=== PATIENT | female | born 1970 | race Caucasian/White ===

== ENCOUNTER 2017-09-18 23:06 | Emergency (ER) | payer BC ==
[2017-09-18] MEDS ORDERED: Aspirin 81 MG Tab.Chew PO ONE (23:11)
--- NOTE | 2017-09-18 23:13 | EDM.PDOC ---
ED HPI GENERAL MEDICAL PROBLEM - General Stated Complaint: CHEST PAIN RADIATING TO LEFT ARM/SHOULDER Time Seen by Provider: 09/18/17 23:13 Source of Information: Reports: Patient History Limitations: Reports: No Limitations - History of Present Illness INITIAL COMMENTS - FREE TEXT/NARRATIVE: ED ambulatory with family with report of chest pain radiating to left shoulder for past hour. Pain constant but lessens at times. Hx HTN. Describes as burning sensation. Pain worse when lying down. No difficulty breathing, No nausea, Onset: Today Chest Pain Score (Numeric/FACES): 5 - Related Data Allergies Allergy/AdvReac Type Severity Reaction Status Date / Time No Known Allergies Allergy Verified 09/18/17 23:16 Home Meds: Home Meds Levothyroxine 1 tab PO DAILY 08/02/15 [History] Propranolol HCl [Propranolol] 09/18/17 [History] Social & Family History - Tobacco Use Smoking Status *Q: Never Smoker Second Hand Smoke Exposure: No - Recreational Drug Use Recreational Drug Use: No ED ROS GENERAL - Review of Systems Review Of Systems: See Below Constitutional: Reports: No Symptoms HEENT: Reports: No Symptoms Respiratory: Denies: Shortness of Breath Cardiovascular: Reports: Chest Pain. Denies: Dyspnea on Exertion, Edema, Orthopnea GI/Abdominal: Denies: Abdominal Pain : Reports: No Symptoms Musculoskeletal: Reports: No Symptoms Neurological: Reports: No Symptoms Psychiatric: Reports: No Symptoms ED EXAM, GENERAL - Physical Exam Exam: See Below Exam Limited By: No Limitations General Appearance: Alert, No Apparent Distress Eye Exam: Bilateral Eye: EOMI, PERRL Ears: Normal External Exam, Normal TMs Nose: Normal Inspection Throat/Mouth: Normal Inspection Head: Atraumatic, Normocephalic Neck: Normal Inspection, Full Range of Motion Respiratory/Chest: No Respiratory Distress, Lungs Clear, Normal Breath Sounds, Other (left upper chest wall tenderness with moderate pressure. ) Cardiovascular: Normal Peripheral Pulses, Regular Rate, Rhythm, No Edema, No JVD , No Murmur GI/Abdominal: Normal Bowel Sounds Back Exam: Full Range of Motion Extremities: Normal Inspection, Normal Range of Motion Neurological: Alert, Oriented Psychiatric: Flat Affect Skin Exam: Warm, Dry, Intact, Normal Color EKG INTERPRETATION Rhythm: NSR Course - Vital Signs Last Recorded V/S: Last Vital Signs Temp 97.8 F 09/18/17 23:11 Pulse 107 H 09/18/17 23:11 Resp 18 09/18/17 23:11 BP 142/98 H 09/18/17 23:11 Pulse Ox 100 09/18/17 23:11 - Orders/Labs/Meds Orders: Active Orders 24 hr Category Date Time Status EKG 12 Lead [EKG Documentation Completion] [RC] URGENT Care 09/18/17 23:13 Active Labs: Laboratory Tests 09/18/17 09/18/17 09/18/17 Range/Units 23:15 23:15 23:15 WBC 8.7 (5.0-10.0) 10^3/uL RBC 5.06 (4.2-5.4) 10^6/uL Hgb 15.6 (12.0-16.0) g/dL Hct 44.2 (37.0-47.0) % MCV 87.4 D (80-100) fL MCH 30.8 (27.0-34.0) pg MCHC 35.3 H (33.0-35.0) g/dL Plt Count 200 (150-450) 10^3/uL Neut % (Auto) 56.2 (42.2-75.2) % Lymph % (Auto) 29.2 (20.5-50.1) % Rice % (Auto) 10.5 H (2-8) % Eos % (Auto) 3.9 H (1.0-3.0) % Baso % (Auto) 0.2 (0.0-1.0) % D-Dimer, Quantitative 169 (0-400) ng/mL Sodium 136 (135-145) mmol/L Potassium 3.5 L (3.6-5.0) mmol/L Chloride 105 (101-111) mmol/L Carbon Dioxide 24.0 (21.0-31.0) mmol/L Anion Gap 10.5 BUN 11 (7-18) mg/dL Creatinine 0.7 (0.6-1.3) mg/dL Est Cr Clr Drug Dosing 75.78 mL/min Estimated GFR (MDRD) > 60 BUN/Creatinine Ratio 15.71 Glucose 115 H (74-105) mg/dL Calcium 8.9 (8.4-10.2) mg/dl Total Bilirubin 0.5 (0.2-1.0) mg/dL AST 23 (10-42) IU/L ALT 26 (10-60) IU/L Alkaline Phosphatase 48 (42-121) IU/L CK-MB (CK-2) (0.4-4.7) ng/mL Troponin I < 0.02 (0.00-0.02) ng/ml Total Protein 7.1 (6.7-8.2) g/dl Albumin 3.7 (3.2-5.5) g/dl Globulin 3.4 Albumin/Globulin Ratio 1.09 Amylase 34 (28-100) U/L Lipase 23 (22-51) U/L 09/18/17 09/19/17 Range/Units 23:15 01:48 WBC (5.0-10.0) 10^3/uL RBC (4.2-5.4) 10^6/uL Hgb (12.0-16.0) g/dL Hct (37.0-47.0) % MCV (80-100) fL MCH (27.0-34.0) pg MCHC (33.0-35.0) g/dL Plt Count (150-450) 10^3/uL Neut % (Auto) (42.2-75.2) % Lymph % (Auto) (20.5-50.1) % Rice % (Auto) (2-8) % Eos % (Auto) (1.0-3.0) % Baso % (Auto) (0.0-1.0) % D-Dimer, Quantitative (0-400) ng/mL Sodium (135-145) mmol/L Potassium (3.6-5.0) mmol/L Chloride (101-111) mmol/L Carbon Dioxide (21.0-31.0) mmol/L Anion Gap BUN (7-18) mg/dL Creatinine (0.6-1.3) mg/dL Est Cr Clr Drug Dosing mL/min Estimated GFR (MDRD) BUN/Creatinine Ratio Glucose (74-105) mg/dL Calcium (8.4-10.2) mg/dl Total Bilirubin (0.2-1.0) mg/dL AST (10-42) IU/L ALT (10-60) IU/L Alkaline Phosphatase (42-121) IU/L CK-MB (CK-2) 1.00 (0.4-4.7) ng/mL Troponin I < 0.02 (0.00-0.02) ng/ml Total Protein (6.7-8.2) g/dl Albumin (3.2-5.5) g/dl Globulin Albumin/Globulin Ratio Amylase (28-100) U/L Lipase (22-51) U/L Meds: Medications Discontinued Medications Generic Name Dose Route Start Last Admin Trade Name Rubia PRN Reason Stop Dose Admin Al Hydroxide/Mg Hydroxide 30 ml 09/18/17 23:50 09/18/17 23:52 Gi Cocktail PO 09/18/17 23:51 30 ml ONETIME ONE Administration Aspirin 324 mg 09/18/17 23:11 09/18/17 23:22 Aspirin PO 09/18/17 23:12 324 mg ONETIME ONE Administration Famotidine 20 mg 09/19/17 00:56 09/19/17 00:59 Pepcid IVPUSH 09/19/17 00:57 20 mg ONETIME ONE Administration Morphine Sulfate 2 mg 09/19/17 01:21 09/19/17 01:28 Morphine IVPUSH 09/19/17 01:22 2 mg ONETIME ONE Administration Morphine Sulfate 2 mg 09/19/17 01:46 09/19/17 02:32 Morphine IVPUSH 09/19/17 01:47 2 mg ONETIME ONE Administration Ondansetron HCl 4 mg 09/19/17 01:21 09/19/17 01:27 Zofran IV 09/19/17 01:22 4 mg ONETIME ONE Administration - Radiology Interpretation Free Text/Narrative:: CXR normal Departure - Departure Time of Disposition: 02:35 Disposition: Home, Self-Care 01 Condition: Good Clinical Impression: Atypical chest pain Instructions: Nonspecific Chest Pain, [id number] Forms: ED Department Discharge Additional Instructions: follow up with [facility] provider this week bland diet, limit acids, caffeine, soda omeprazole 20mg one daily on empty stomach tylenol 650mg every 4 hours as needed for pain - My Orders Last 24 Hours: My Active Orders 09/18/17 23:13 EKG 12 Lead [EKG Documentation Completion] [RC] URGENT - Assessment/Plan Last 24 Hours: My Active Orders 09/18/17 23:13 EKG 12 Lead [EKG Documentation Completion] [RC] URGENT
[2017-09-18 23:16] VITALS: BP 142/98
[2017-09-18 23:46] LABS: ANION GAP 10.5; CHLORIDE,CL 105 mmol/L (101-111); SODIUM,NA 136 mmol/L (135-145)
[2017-09-18] MEDS ORDERED: GI Cocktail Oral Solution 30 ML PO ONE (23:50)
[2017-09-19] MEDS ORDERED: Famotidine 20 MG/2 ML SDV IVPUSH ONE (00:56)
[2017-09-19] MEDS ORDERED: Ondansetron 4 MG/2 ML SDV IV ONE (01:21)
[2017-09-19] MEDS ORDERED: Morphine 2 MG/ML Syringe IVPUSH ONE ×2 (01:21→01:46)
--- NOTE | 2017-09-19 13:05 | EKG ---
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 Borderline left axis deviation. Borderline R-wave progression to level of V5. No acute ST-segment or T-wave changes. [facility] /[id number]
== END 2017-09-19 02:45 | disposition home or self-care (01) ==
LOC: DL.ED 23:06
DX: R07.89 Other chest pain (principal); I10 Essential (primary) hypertension; Z79.899 Other long term (current) drug therapy
CPT/HCPCS: 36415; 71045; 80053; 82150; 82553; 83690; 84484; 85025; 85379; 93005; 96374; 96375; 96376; 99285; A9270; J2270; J2405; S0028

== ENCOUNTER 2020-03-14 17:53 | Emergency (ER) | payer BC ==
[2020-03-14] MEDS ORDERED: Famotidine 20 MG/2 ML SDV IVPUSH ONE (19:16)
[2020-03-14] MEDS ORDERED: GI Cocktail Oral Solution 30 ML PO ONE (19:20)
[2020-03-14 19:32] VITALS: BP 135/83; PULSE 93
--- NOTE | 2020-03-14 19:38 | CR ---
PROCEDURE INFORMATION: Exam: XR Chest, 1 View Exam date and time: 03/14/2020 7:29 PM Age: 49 years old Clinical indication: Other: Painj; Additional info: Chest burn TECHNIQUE: Imaging protocol: XR of the chest Views: 1 view. COMPARISON: CR Chest 1V Frontal 09/18/2017 11:45 PM FINDINGS: Lungs: Increased basilar lung density is felt to be related to body habitus and extrinsic soft tissue attenuation. This is similar to prior exam. Normal pulmonary expansion. Pulmonary vasculature grossly normal. No infiltrates. Pleural space: No pleural effusion. No pneumothorax. Heart/Mediastinum: Heart size normal. Bones/joints: No acute osseous abnormalities are identified. Other findings: No tracheal/mediastinal shift. IMPRESSION: No acute thoracic process.
[2020-03-14 19:57] LABS: ANION GAP 11.9 mEq/L (7-13); CHLORIDE,CL 104 mmol/L (98-107); SODIUM,NA 141 mmol/L (136-145)
[2020-03-14] MEDS ORDERED: Pantoprazole 40 MG Vial IVPUSH ONE (20:14)
--- NOTE | 2020-03-14 21:09 | EDM.PDOC ---
ED HPI GENERAL MEDICAL PROBLEM - General Chief Complaint: Chest Pain Stated Complaint: CHEST BURNING Time Seen by Provider: 03/14/20 19:05 Source of Information: Reports: Patient History Limitations: Reports: No Limitations - History of Present Illness INITIAL COMMENTS - FREE TEXT/NARRATIVE: ED with c/o burning in epigastric area, No SOB Pain sharp at times, Tried pepcid and helped some. then came back. Has had similar previously. Was on stomach medication for period then quit for past week. has not been taking. Pain radiates to right shoulder, No hx GB issues. No previous EGD, states told if one more episode then would schedule one chest Pain Score (Numeric/FACES): 4 - Related Data Allergies Allergy/AdvReac Type Severity Reaction Status Date / Time No Known Allergies Allergy Verified 03/14/20 18:08 Home Meds: Home Meds Levothyroxine 150 mcg PO DAILY 08/02/15 [History] Propranolol HCl [Propranolol] 60 mg PO BEDTIME 09/18/17 [History] Famotidine [Pepcid AC] 20 mg PO DAILY PRN 03/14/20 [History] Past Medical History HEENT History: Reports: Impaired Vision Cardiovascular History: Reports: Hypertension Respiratory History: Reports: None Gastrointestinal History: Reports: GERD Genitourinary History: Reports: None Musculoskeletal History: Reports: None Neurological History: Reports: None Psychiatric History: Reports: None Endocrine/Metabolic History: Reports: Hypothyroidism Hematologic History: Reports: None Immunologic History: Reports: None Oncologic (Cancer) History: Reports: None Dermatologic History: Reports: None - Infectious Disease History Infectious Disease History: Reports: None - Past Surgical History Female Surgical History: Reports: Section Social & Family History - Family History Family Medical History: Noncontributory - Tobacco Use Smoking Status *Q: Never Smoker Second Hand Smoke Exposure: No - Caffeine Use Caffeine Use: Reports: None - Recreational Drug Use Recreational Drug Use: No ED ROS GENERAL - Review of Systems Review Of Systems: Comprehensive ROS is negative, except as noted in HPI. ED EXAM, GENERAL - Physical Exam Exam: See Below Exam Limited By: No Limitations General Appearance: Alert, Mild Distress, Obese Eye Exam: Bilateral Eye: PERRL Ears: Normal External Exam, Normal TMs Nose: Normal Inspection Throat/Mouth: Normal Inspection Head: Atraumatic, Normocephalic Neck: Normal Inspection Respiratory/Chest: No Respiratory Distress, Lungs Clear, Normal Breath Sounds Cardiovascular: Normal Peripheral Pulses, Regular Rate, Rhythm GI/Abdominal: Normal Bowel Sounds, Soft, Tender (epigastric). No: Distended, Guarding, Rigid Back Exam: Normal Inspection, Full Range of Motion Extremities: Normal Inspection, Normal Range of Motion Psychiatric: Normal Affect, Normal Mood Skin Exam: Warm, Dry, Intact, Normal Color Course - Vital Signs Last Recorded V/S: Last Vital Signs Temp 98.6 F 03/14/20 19:31 Pulse 93 03/14/20 19:31 Resp 16 03/14/20 19:31 BP 135/83 03/14/20 19:31 Pulse Ox 97 03/14/20 19:31 - Orders/Labs/Meds Labs: Laboratory Tests 03/14/20 03/14/20 03/14/20 Range/Units 19:10 19:10 19:10 WBC 6.7 (5.0-10.0) 10^3/uL RBC 4.99 (4.2-5.4) 10^6/uL Hgb 15.5 (12.0-16.0) g/dL Hct 44.3 (37.0-47.0) % MCV 88.8 (80-100) fL MCH 31.1 (27.0-34.0) pg MCHC 35.0 (33.0-35.0) g/dL Plt Count 203 (150-450) 10^3/uL Neut % (Auto) 57.7 (42.2-75.2) % Lymph % (Auto) 28.2 (20.5-50.1) % O'Brien % (Auto) 9.7 H (2-8) % Eos % (Auto) 4.3 H (1.0-3.0) % Baso % (Auto) 0.1 (0.0-1.0) % Sodium 141 (136-145) mmol/L Potassium 3.9 (3.5-5.1) mmol/L Chloride 104 (98-107) mmol/L Carbon Dioxide 29 (21-32) mmol/L Anion Gap 11.9 (7-13) mEq/L BUN 13 (7-18) mg/dL Creatinine 0.97 (0.55-1.02) mg/dL Est Cr Clr Drug Dosing 53.52 mL/min Estimated GFR (MDRD) > 60 BUN/Creatinine Ratio 13.4 (No establ ref range) Glucose 100 H (74-99) mg/dL Calcium 9.4 (8.5-10.1) mg/dL Total Bilirubin 0.5 (0.2-1.0) mg/dL AST 15 (15-37) U/L ALT 31 (14-59) U/L Alkaline Phosphatase 47 (46-116) U/L Creatine Kinase 38 (16-191) U/L Troponin I < 0.017 (0.000-0.056) ng/mL Total Protein 7.1 (6.4-8.2) g/dL Albumin 3.4 (3.4-5.0) g/dL Globulin 3.7 Albumin/Globulin Ratio 0.9 Amylase 34 (25-115) U/L Lipase 96 (73-393) U/L Meds: Medications Discontinued Medications Generic Name Dose Route Start Last Admin Trade Name Freq PRN Reason Stop Dose Admin Al Hydroxide/Mg Hydroxide 30 ml 03/14/20 19:20 03/14/20 19:24 Gi Cocktail PO 03/14/20 19:21 30 ml ONETIME ONE Administration Famotidine 20 mg 03/14/20 19:16 03/14/20 19:24 Pepcid IVPUSH 03/14/20 19:17 20 mg ONETIME ONE Administration Pantoprazole Sodium 40 mg 03/14/20 20:14 03/14/20 20:25 Protonix Iv IVPUSH 03/14/20 20:15 40 mg ONETIME ONE Administration - Re-Assessments/Exams Free Text/Narrative Re-Assessment/Exam: 03/17/20 15:06 Improvement after GI cocktail not completely resolved. Departure - Departure Time of Disposition: 21:05 Disposition: Home, Self-Care 01 Condition: Good Clinical Impression: Reflux gastritis Instructions: Gastritis, Adult, [id number] Forms: ED Department Discharge Additional Instructions: bland, low acid, low fat diet resume pepcid avoid caffeine no alcohol follow up with Primary care tuesday Urgent if symptoms worsen, Sepsis Event Note (ED) - Evaluation Sepsis Screening Result: No Definite Risk
== END 2020-03-14 21:11 | disposition home or self-care (01) ==
LOC: DL.ED 17:53
DX: K29.70 Gastritis, unspecified, without bleeding (principal); K21.9 Gastro-esophageal reflux disease without esophagitis
CPT/HCPCS: 36415; 71045; 80053; 82150; 82550; 83690; 84484; 85025; 93005; 96374; 96375; 99283; 99285-25; A9270-GY; C9113; J3490

== ENCOUNTER 2020-04-01 06:53 | Day surgery (SDC) | payer BC ==
[~2020-04-01 06:53] MED LIST: Dextrose 5%-0.45% NaCl 1,000 ML IV SCH; Midazolam 1 MG/ML 2 ML SDV ONE; Sodium Chloride 0.9% 10 ML Syringe FLUSH PRN; fentaNYL 100 MCG/2 ML SDV ONE
[2020-04-01] MEDS ORDERED: fentaNYL 100 MCG/2 ML SDV IV ONE ×3 (06:54→07:34)
[2020-04-01] MEDS ORDERED: Midazolam 1 MG/ML 2 ML SDV IV ONE ×3 (06:54→07:35)
--- NOTE | 2020-04-01 08:20 | OR ---
DATE: 04/01/2020 PROCEDURE: Esophagogastroduodenoscopy and multiple pinch biopsies. INSTRUMENT USED: [id number] Olympus video panendoscope. PREMEDICATIONS: No oral or topical anesthesia used. Fentanyl 100 mcg intravenous. Versed 2 mg intravenous. The procedure was done under pulse oximetry, BP recording, and community coordinator. INDICATION: The patient with long-standing heartburn and upper abdominal pain, unexplained, and not responsive to medical measures, on acid suppressants. Esophagogastroduodenoscopy is performed for detection of any active erosive lesions, Ambrose esophagus, and/or malignancy also under consideration, H pylori status to be determined, endoscopic hemostasis therapy if needed. DESCRIPTION OF PROCEDURE: The scope was passed with ease. Adequate visualization of the esophagus was made from proximal to distal areas. No upper esophageal lesions identified. No distal esophageal stricture. No uphill or downhill esophageal varices. No Sofya-Lynn tear. No evidence of erosive esophagitis by [place] criteria. No esophageal polyp or tumor mass identified. Z-line was seen at around 40 cm distal to the oral verge, configuration consistent with grade 1 by ZAP classification. No proximal gastric varices noted. Gastric fundus examination by retroflexion showed no polypoid lesions. No gastric ulcer, malignant mass, or vascular ectasia identified. Duodenal bulb showed no ulcer. Visualized second part of the duodenum was unremarkable. Multiple pinch biopsies were taken from the gastric antrum and proximal body and sent for PyloriTek test for H pylori, and if negative in an hour, the tissue is to be sent for histopathology. No bleeding was noted from any of the visualized areas at the completion of examination. Photographs were taken of the duodenal bulb, gastric antrum, fundus, and distal esophagus. IMPRESSION: Normal study. The patient tolerated the procedure well. [facility] /[id number]
[2020-04-01 10:05] VITALS: BP 127/80; PULSE 69
== END 2020-04-01 09:51 | disposition home or self-care (01) ==
LOC: DL.ENDO 06:53
PROVIDERS: ATTEND Internal Medicine Gastroenterology
DX: R10.10 Upper abdominal pain, unspecified (principal); R12 Heartburn; I10 Essential (primary) hypertension; E03.9 Hypothyroidism, unspecified; E66.09 Other obesity due to excess calories; E83.42 Hypomagnesemia; Z86.69 Personal history of other diseases of the nervous system and sense organs; Z90.49 Acquired absence of other specified parts of digestive tract; Z98.890 Other specified postprocedural states; Z68.41 Body mass index [BMI] 40.0-44.9, adult
CPT/HCPCS: 43239; 81025; 87077; J2250; J3010; J7042

== ENCOUNTER 2022-08-23 05:19 | Day surgery (SDC) | payer BC ==
[~2022-08-23 05:19] MED LIST changes: -Midazolam 1 MG/ML 2 ML SDV ONE; +Sodium Chloride 0.9% 10 ML Syringe FLUSH SCH; -fentaNYL 100 MCG/2 ML SDV ONE
[2022-08-23] MEDS ORDERED: fentaNYL 100 MCG/2 ML SDV IV ONE ×3 (05:20→06:34)
[2022-08-23] MEDS ORDERED: Midazolam 1 MG/ML 2 ML SDV IV ONE ×5 (05:20→06:48)
[2022-08-23] MEDS ORDERED: Midazolam 1 MG/ML 2 ML SDV ONE (06:15)
[2022-08-23] MEDS ORDERED: fentaNYL 100 MCG/2 ML SDV ONE (06:15)
[2022-08-23 08:23] VITALS: BP 122/75; PULSE 72
== END 2022-08-23 08:28 | disposition home or self-care (01) ==
LOC: DL.ENDO 05:19
PROVIDERS: ATTEND Internal Medicine Gastroenterology
DX: Z12.11 Encounter for screening for malignant neoplasm of colon (principal); K62.1 Rectal polyp; I10 Essential (primary) hypertension; E66.09 Other obesity due to excess calories; E03.9 Hypothyroidism, unspecified; Z90.49 Acquired absence of other specified parts of digestive tract; Z98.890 Other specified postprocedural states; Z68.41 Body mass index [BMI] 40.0-44.9, adult
CPT/HCPCS: J2250; J3010; J7042